=== PATIENT | female | born 1940 | race Caucasian/White ===

== ENCOUNTER 2018-11-20 21:45 | Emergency (ER) | payer MEDICARE ==
[2018-11-20] MEDS ORDERED: NITROGLYCERIN-D5W PMX 50 MG in DEXTROSE/WATER 1 250ML.BAG IV ONE (23:05)
[2018-11-20] MEDS ORDERED: MORPHINE SULFATE 4 MG/ML SYRINGE IV STA (23:05)
--- NOTE | 2018-11-20 23:11 | ED ---
Chest Pain HPI - General Chief Complaint: Chest Pain Stated Complaint: Chest Pain Time Seen by Provider: 11/20/18 22:30 Source: EMS Mode of arrival: EMS Limitations: no limitations - History of Present Illness Initial Comments: This patient is an 78-year-old woman transferred here from [facility]. The patient had gone there this evening to have evaluation for pain she has had to the upper chest bilaterally going on for between 2 and 3 days. She states it is an aching pain, constant, moderate intensity. She states she has also been feeling short of breath for that period of time. She denies other anginal symptoms, including no diaphoresis, nausea or vomiting, palpitations, lightheadedness or syncope. At the other hospital, the patient appeared to be in congestive heart failure and is this is a new diagnosis, she was transferred here to be admitted. MD Complaint: chest pain Onset/Timin -: days(s) Onset: during rest Pain Location: left chest, right chest Pain Radiation: back Severity: moderate Quality: aching Consistency: constant Improves With: nothing Worsens With: nothing Anginal Symptoms: dyspnea Other Symptoms: cough - Related Data Home Medications Medication Instructions Recorded Confirmed Ibuprofen [Motrin Ib] 400 mg PO Q6H PRN 11/20/18 11/20/18 Multivitamins, Thera [Multivitamin 1 tab PO DAILY 11/20/18 11/20/18 (formulary)] Allergies Allergy/AdvReac Type Severity Reaction Status Date / Time celecoxib [From Celebrex] Allergy Anaphylaxis Verified 11/20/18 22:21 latex AdvReac Unknown Verified 11/20/18 22:21 Review of Systems ROS Statement: Those systems with pertinent positive or pertinent negative responses have been documented in the HPI. ROS Other: All systems not noted in ROS Statement are negative. Constitutional: Denies: fever, chills Respiratory: Reports: cough, dyspnea. Denies: wheezes, hemoptysis Cardiovascular: Reports: chest pain, edema (Trace ankle edema bilaterally). Denies: palpitations, orthopnea, syncope Gastrointestinal: Denies: abdominal pain, nausea, vomiting Genitourinary: Denies: dysuria, hematuria Musculoskeletal: Reports: back pain Skin: Denies: rash Neurological: Denies: headache, weakness, numbness EKG Findings - EKG Results: EKG: interpreted by ERMD, sinus rhythm (With PACs. ), normal ST/T EKG shows: tachycardia (Rate approximately 110 bpm) - Blocks, [place], Hypertrophy, ST Abn: Chamber hypertrophy or enlargement: left ventricular hypertrophy or enlargement (LVE) - [place], Pacemaker, Normal: Myocardial infarction: septal [place] (old age or indeterminate) Past Medical History Past Medical History: Atrial Fibrillation, Heart Failure Additional Past Medical History / Comment(s): NSTEMI History of Any Multi-Drug Resistant Organisms: None Reported Past Surgical History: Cholecystectomy Past Psychological History: No Psychological Hx Reported Smoking Status: Never smoker Past Alcohol Use History: None Reported Past Drug Use History: None Reported General Exam Limitations: no limitations General appearance: alert, in no apparent distress Head exam: Present: atraumatic, normocephalic Eye exam: Present: normal appearance. Absent: scleral icterus, conjunctival injection Neck exam: Present: normal inspection Respiratory exam: Present: rales (Bilateral bases). Absent: respiratory distress, wheezes, rhonchi, stridor Cardiovascular Exam: Present: tachycardia, normal heart sounds. Absent: systolic murmur, diastolic murmur, rubs, gallop GI/Abdominal exam: Present: soft. Absent: distended, tenderness, guarding, rebound, rigid, mass Extremities exam: Present: normal inspection, normal capillary refill. Absent: pedal edema, calf tenderness Back exam: Present: normal inspection. Absent: CVA tenderness (R), CVA tenderness (L) Neurological exam: Present: alert Skin exam: Present: warm, dry, intact, normal color. Absent: rash Course Vital Signs 11/20/18 11/20/18 11/21/18 22:00 23:00 00:00 Temperature 99.3 F Pulse Rate 133 H 109 H 117 H Respiratory 22 22 20 Rate Blood Pressure 168/93 186/112 151/98 O2 Sat by Pulse 92 L 98 97 Oximetry 11/21/18 11/21/18 01:00 02:00 Temperature Pulse Rate 110 H 100 Respiratory 20 24 Rate Blood Pressure 170/90 123/69 O2 Sat by Pulse 99 95 Oximetry Chest Pain MDM - MDM This patient is a-year-old woman who was transferred here from [facility] for suspected new onset of CHF. When I interview the patient, her component of back pain seems more prominent than a simple CHF exacerbation, and additional workup does reveal left sided pulmonary embolism. There does appear to me to be heart strain associated. Case is discussed with our doctor of optometry, Dr. Willard, who feels that the patient would benefit from higher level of care, and including a possible endovascular procedure. I discussed case with Dr. Felton at [facility] but they do not have ICU beds available. I discussed the case with the patient and family again, and the next option would be [facility]. I discussed the case with Dr. Foster, ICU fellow , who does accept the case for transfer. Critical Care Time Critical Care Time: Yes (45 minutes) Disposition Clinical Impression: Pulmonary embolism on left, CHF (congestive heart failure), Elevated troponin I level Disposition: OTHER INSTITUTION NOT DEFINED Condition: Serious - Out of Hospital Transfer - Req. Specs Out of Hospital Transfer - Requested Specifics: Respiratory ICU ([facility])
[2018-11-20 23:44] LABS: Anisocytosis Slight; Basophils % (A) 0 %; Eosinophils % (A) 0 %; HCT 37.2 % (34.0-46.0); HGB 11.7 gm/dL (11.4-16.0); Lymphocytes % (A) 10 %; MCH 26.3 pg (25.0-35.0); MCHC 31.3 g/dL (31.0-37.0); Mean Platelet Volume 6.7; Monocytes # (A) 0.4 k/uL (0-1.0); Monocytes % (A) 4 %; Neutrophils # (A) 8.5 k/uL (1.3-7.7); Neutrophils % (A) 85 %; Platelet Count 273 k/uL (150-450); RBC 4.43 m/uL (3.80-5.40); RDW 16.1 % (11.5-15.5); WBC 10.1 k/uL (3.8-10.6)
--- NOTE | 2018-11-20 23:58 | XR ---
EXAMINATION TYPE: XR chest 2V DATE OF EXAM: 11/20/2018 COMPARISON: 11/20/2018 Randy exam HISTORY: Chest pain TECHNIQUE: Frontal and lateral views of the chest are obtained. FINDINGS: Heart is enlarged. There is pulmonary vascular congestion. There is some blunting of the c ostophrenic angles. There is minimal fluid in the fissures. Thoracic aorta is atheromatous. IMPRESSION: There is congestive heart failure that is the same or slightly worse than exam earlier t carmen at 7:00 PM.
[2018-11-21 00:01] LABS: ALT 91 U/L (9-52); AST 151 U/L (14-36); Alkaline Phosphatase 80 U/L (38-126); Anion Gap 8 mmol/L; Blood Urea Nitrogen 18 mg/dL (7-17); Calcium 8.5 mg/dL (8.4-10.2); Carbon Dioxide 26 mmol/L (22-30); Chloride 102 mmol/L (98-107); Glucose 101 mg/dL (74-99); Magnesium 1.7 mg/dL (1.6-2.3); Sodium 136 mmol/L (137-145); Total Bilirubin 1.1 mg/dL (0.2-1.3); Total Protein 7.5 g/dL (6.3-8.2)
[2018-11-21 00:09] LABS: Partial Thromboplastin Time 25.3 sec (22.0-30.0); Prothrombin Time 10.9 sec (9.0-12.0)
[2018-11-21] MEDS ORDERED: FUROSEMIDE 10 MG/ML 4 ML VIAL IV STA (00:10)
[2018-11-21 00:13] LABS: D-Dimer 6.01 mg/L FEU (<0.60)
[2018-11-21] MEDS ORDERED: FUROSEMIDE 10 MG/ML 4 ML VIAL IV SCH (00:15)
[2018-11-21 00:37] LABS: Creatine Kinase MB 56.1 ng/mL (0.0-2.4)
[2018-11-21 01:13] LABS: Troponin I 0.438 ng/mL (0.000-0.034)
[2018-11-21] MEDS ORDERED: HEPARIN SODIUM,PORCINE 5,000 UNIT/ML 1 ML VIAL IV ONE (01:14)
[2018-11-21] MEDS ORDERED: HEPARIN SODIUM,PORCINE 5,000 UNIT/ML 1 ML VIAL IV PRN (01:14)
[2018-11-21] MEDS ORDERED: HEPARIN SOD,PORK IN 0.45% NACL 25,000 UNIT in 0.45% NACL 1 250ML.BAG IV SCH (01:15)
[2018-11-21] MEDS ORDERED: MORPHINE SULFATE 4 MG/ML SYRINGE IV STA (01:17)
--- NOTE | 2018-11-21 01:24 | CT ---
EXAMINATION TYPE: CT chest angio for PE DATE OF EXAM: 11/21/2018 COMPARISON: None HISTORY: r/o PE CT DLP: 310.7 mGycm Automated exposure control for dose reduction was used. CONTRAST: CT Chest for pulmonary embolism performed with with IV Contrast, patient injected with 50 mL of Isovu e 370. FINDINGS: There are 3-D post processed images. There are bilateral pleural effusions and larger on the left side. Heart is enlarged. There is patchy airspace consolidation and atelectasis in both lower lobes. Thoracic aorta is atheromatous. There is no evidence of aneurysm. There is no evidence of dissection. The ascending aorta measures 3.5 cm. There are multiple large filling defects in the left lower lobe pulmonary artery. Right lower lobe pu lmonary artery appears normal. There is no mediastinal adenopathy. There are no hilar masses. The bony thorax is intact. There is de generative spurring in the thoracic spine. IMPRESSION: Left lower lobe pulmonary embolism. Bilateral lower lobe pulmonary infiltrates and atelectasis with pleural effusions. This probably rela pramod to congestive heart failure. Moderate cardiomegaly. This exam was discussed with ER physician at 1:20 AM.
[2018-11-21 02:10] VITALS: RESP 24
[2018-11-21] MEDS ORDERED: NITROGLYCERIN OINT 1 INCH/GM PACKET TOPICAL STA (02:37)
[2018-11-21 03:12] VITALS: BP 113/67; PULSE 106; TEMP 98.5
[2018-11-22] MEDS ORDERED: ASPIRIN 325 MG TAB PO SCH (00:12)
== END 2018-11-21 03:45 | disposition short-term general hospital (02) ==
LOC: EC 21:45 → UNDOADMIN 11-21 00:11 → 3SCARD 11-21 00:11 → EC 11-21 03:45
DX: I26.99 Other pulmonary embolism without acute cor pulmonale (principal); I50.9 Heart failure, unspecified; R79.89 Other specified abnormal findings of blood chemistry; R00.0 Tachycardia, unspecified; M54.9 Dorsalgia, unspecified; Z88.6 Allergy status to analgesic agent; Z91.040 Latex allergy status; Z53.8 Procedure and treatment not carried out for other reasons
CPT/HCPCS: 99291; 96365; 96366 ×3; 96368; 96375 ×2; 96376 ×2; 36415; 93005; 85379; 83880; 80053; 82550; 82553; 83735; 84484; 85025; 85610; 85730; 71046; 71275; J2270 ×2; J1644 ×2; J1940; Q9967